=== PATIENT | female | born 1990 | race Caucasian/White ===

== ENCOUNTER 2021-11-27 19:35 | Emergency (ER) | payer MEDICAID ==
[~2021-11-27] VITALS: Ht 172.7 cm; Wt 140.9 kg
[2021-11-27 21:10] LABS: BASOPHILS # (AUTO) 0.1 X10'3 (0-0.2); BASOPHILS % (AUTO) 0.5 % (0-1); EOSINOPHILS # (AUTO) 0.1 X10'3 (0-0.9); EOSINOPHILS % (AUTO) 0.7 % (0-6); HEMATOCRIT 43.7 % (35.0-45.0); HEMOGLOBIN 14.6 g/dl (12.0-16.0); LYMPHOCYTES # (AUTO) 2.1 X10'3 (1.1-4.8); LYMPHOCYTES % (AUTO) 17.4 % (21-51); MEAN CORPUSCULAR HEMOGLOBIN 30.1 PG (27.0-31.0); MEAN CORPUSCULAR HGB CONC 33.4 g/dL (33.0-36.5); MEAN CORPUSCULAR VOLUME 90.2 FL (78-98); MEAN PLATELET VOLUME 7.9 FL (7.4-10.4); MONOCYTES % (AUTO) 8.1 % (2-12); NEUTROPHILS # (AUTO) 8.9 X10'3 (1.8-7.7); NEUTROPHILS % (AUTO) 73.3 % (42-75); PLATELET COUNT 337 X10'3 (140-440); RED BLOOD COUNT 4.85 X10'6 (4.20-5.60); RED CELL DISTRIBUTION WIDTH 15.3 % (11.5-14.5); WHITE BLOOD COUNT 12.1 X10'3 (4.5-11.0)
[2021-11-27 21:25] LABS: ALANINE AMINOTRANSFERASE 22 U/L (12-78); ALBUMIN 3.7 G/DL (3.4-5.0); ALBUMIN/GLOBULIN RATIO 0.9 (1.1-1.5); ALKALINE PHOSPHATASE 67 IU/L (46-116); ANION GAP 8 (8-16); ASPARTATE AMINO TRANSFERASE 16 U/L (10-37); BILIRUBIN,TOTAL 0.4 MG/DL (0.1-1.0); BLOOD UREA NITROGEN 11 MG/DL (7-18); BUN/CREATININE RATIO 12.5 (6.6-38.0); CALCIUM 8.6 MG/DL (8.5-10.1); CHLORIDE 110 MMOL/L (99-107); CREATININE 0.88 MG/DL (0.40-0.90); GLUCOSE 86 MG/DL (70-104); POTASSIUM 3.7 MMOL/L (3.5-5.1); SODIUM 143 MMOL/L (135-145); TOTAL PROTEIN 7.8 G/DL (6.4-8.2); eGFR 74 ML/MIN
[2021-11-28 02:25] LABS: CLARITY,URINE SLIGHTLY CLOUDY (Clear); COLOR,URINE YELLOW (Yellow); GLUCOSE, URINE NEGATIVE (Neg); KETONES,URINE 15 mg/dl (Neg); LEUKOCYTE ESTERASE ,URINE NEGATIVE (Neg); NITRITES, URINE NEGATIVE (Neg); OCCULT BLOOD,URINE SMALL (Neg); PH,URINE 5.5 (4.8-8.0); PROTEIN,URINE TRACE mg/dl (Neg); UROBILINOGEN,URINE 0.2 E.U/dL (0.2-1.0)
[2021-11-28 02:26] LABS: UA COLLECTION TYPE CLN CATCH MIDSTREAM
[2021-11-28 02:32] LABS: BACTERIA,URINE 3+ /HPF (Neg); MUCUS STRANDS MANY /LPF (Neg); SQUAMOUS EPITHELIAL CELL,UR MANY /LPF (FEW); WBC,URINE 0-4 /HPF (0-4)
[2021-11-28 02:33] LABS: URINE AMPHETAMINE SCREEN NEGATIVE (Neg); URINE BARBITUATE SCREEN NEGATIVE (Neg); URINE BENZODIAZEPINES SCREEN NEGATIVE (Neg); URINE CANNABINOID SCREEN POSITIVE (Neg); URINE COCAINE SCREEN NEGATIVE (Neg); URINE METHADONE SCREEN NEGATIVE (Neg); URINE OPIATE SCREEN NEGATIVE (Neg); URINE PHENCYCLIDINE SCREEN NEGATIVE (Neg)
--- NOTE | 2021-11-28 05:46 | NUR ---
Patient resting in room, in a safe environment
[2021-11-28 06:10] LABS: ETHANOL < 0.010 GM/DL (0.0-0.010)
[2021-11-28 06:11] LABS: ACETAMINOPHEN < 2.0 UG/ML (10-30)
[2021-11-28 06:17] LABS: URINE HCG NEGATIVE (NEG)
--- NOTE | 2021-11-28 06:30 | NUR ---
ASSUMED CARE AT THIS TIME, PT IS ASLEEP. IN NO FORM OF DISTRESS
--- NOTE | 2021-11-28 10:25 | NUR ---
PATIENT WAS MOVED TO THE OVERFLOW BEHAVIORAL SECTION OF THE ER IN RM 26. PT WAS IN NO FORM OF DISTRESS. AWAKE, ALERT AND ORIENTEDX4. CONTINUED TO DENY ANY THOUGHT OF HARM TO SELF OR OTHERS. HALLUCINATIONS CONTINUE TO BE PRESENT
--- NOTE | 2021-11-28 11:27 | NUR ---
Pt is currently in bed resting with eyes closed. Respirations are even and unlabored. No signs or symptoms of distress noted. Will continue to monitor.
--- NOTE | 2021-11-28 12:11 | NUR ---
Pt visiting with sister at bedside.
--- NOTE | 2021-11-28 13:11 | NUR ---
Pt resting in bed with eyes closed. No signs or symptoms of distress noted. Respirations appear even and unlabored. Will continue to monitor.
--- NOTE | 2021-11-28 14:05 | NUR ---
Pt is currently in bed resting with eyes open. Pt reports having auditory hallucinations telling her that "it's not worth it" and to "just leave". Pt reports having visual hallucinations approximately 1 hour ago of significant other. Will continue to monitor.
--- NOTE | 2021-11-28 16:09 | NUR ---
Pt is currently in bed resting with eyes closed. Respirations appear even and unlabored. No signs or symptoms of distress noted at this time. Will continue to monitor.
[2021-11-28] MEDS ORDERED: LORazepam 1 MG tablet PO ONE (16:15)
[2021-11-28] MEDS ORDERED: FURO-150 PO (16:51)
[2021-11-28] MEDS ORDERED: METF-436 PO (16:51)
[2021-11-28] MEDS ORDERED: ACET250T3 PO (16:51)
[2021-11-28] MEDS ORDERED: CYCL-394 PO (16:51)
[2021-11-28] MEDS ORDERED: TOPI25TA15 PO (16:51)
[2021-11-28] MEDS ORDERED: [UNRECOGNIZED DRUG - CODE] PO (16:51)
--- NOTE | 2021-11-28 17:02 | NUR ---
sister nelda's number [phone] sister Daren [phone]
[2021-11-28] MEDS: nicotine 21mg patch - 24 hr TD SCH (18:10)
--- NOTE | 2021-11-28 18:41 | NUR ---
Pt is in bed resting with eyes closed. No signs or symptoms of distress noted. Respirations appear even and unlabored. Will continue to monitor.
--- NOTE | 2021-11-28 18:56 | NUR ---
[facility] regarding patient's medication Acetazalomide; pharmacy only carries the 500mg capsules but patient is on 250mg dose and so patient can provide own meds to be administered by staff.
--- NOTE | 2021-11-28 19:50 | NUR ---
Pt is in bed resting with eyes closed. No signs or symptoms of distress noted. Respirations appear even and unlabored. Will continue to monitor.
[2021-11-28] MEDS ORDERED: acetaZOLAMIDE 250mg tablet PO SCH (20:00)
--- NOTE | 2021-11-28 20:41 | NUR ---
Pt is in bed resting with eyes closed. Respirations appear even and unlabored. No signs or symptoms of distress noted. Will continue to monitor.
--- NOTE | 2021-11-28 22:22 | NUR ---
Patient resting in bed, quietly, in line of sight of staff. Expresses no need at this time.
--- NOTE | 2021-11-28 23:18 | NUR ---
Patient resting in bed with eyes in line of sight of staff.
--- NOTE | 2021-11-29 | NUR ---
Patient resting in bed in lines of sight of staff
[2021-11-29] MEDS: cyclobenzaprine 10mg tablet PO SCH ×3 (00:40→16:00)
[2021-11-29] MEDS: nicotine 21mg patch - 24 hr TD SCH ×2 (00:40→08:00)
--- NOTE | 2021-11-29 00:57 | NUR ---
Nicotine patch replaced. Scheduled medication administered as ordered. Patient remains cooperative in a safe environment.
--- NOTE | 2021-11-29 02:21 | NUR ---
Patient resting quietly in bed in lines of sight of all staff.
--- NOTE | 2021-11-29 03:28 | NUR ---
Pt resting in bed , given extra warm blanket for comfort
--- NOTE | 2021-11-29 04:45 | NUR ---
Patient resting in bed quietly in line of sight of staff
--- NOTE | 2021-11-29 05:44 | NUR ---
Patient resting quietly in bed in line of sight of staff
[2021-11-29 06:09] VITALS: BP 117/69
[2021-11-29] MEDS ORDERED: metFORMIN 500mg tablet PO SCH (07:30)
[2021-11-29] MEDS ORDERED: acetaZOLAMIDE 500mg capsule.SA PO ONE (07:50)
[2021-11-29] MEDS ORDERED: topiramate 25mg tablet PO SCH (08:00)
[2021-11-29] MEDS ORDERED: LEVONORGESTREL ETHIN ESTRADIOL PO SCH (08:00)
[2021-11-29] MEDS ORDERED: acetaZOLAMIDE 500mg capsule.SA PO SCH (08:00)
[2021-11-29] MEDS ORDERED: furosemide 20MG tablet PO SCH (08:00)
--- NOTE | 2021-11-29 09:08 | NUR ---
Pt wants to watch TV. She is tearful.
--- NOTE | 2021-11-29 12:30 | NUR ---
Pt ate 90% of lunch.
--- NOTE | 2021-11-29 14:05 | NUR ---
Sp[facility] with M[facility] from [facility]. Given report.
--- NOTE | 2021-11-29 14:25 | NUR ---
Received call from Meaghan at [facility]. Pt has been accepted to [facility] in [place]. The accepting physcian is Dr. Akins and acceptance time is 1415. Transport eta is 1999, pending student truck driver.
--- NOTE | 2021-11-29 16:25 | NUR ---
Pt refused her Flexaril. Stated that she never takes Flexaril in the afternoon.
[2021-11-29] MEDS ORDERED: LORazepam 1 MG tablet PO ONE (18:35)
--- NOTE | 2021-11-29 18:52 | NUR ---
The patient approached the nursing station and was shaking and crying and stated that her anxiety was very high and she was asking for medication "to take the edge off" Dr. Hall made aware and orders received. She stated that she is having auditory derogatory voices. She is very depressed and has not been eating for over one month. She is motivated for treatment. She was made aware that she is being transferred to [facility].
== END 2021-11-29 19:47 ==
LOC: ER 19:36
DX: R45.851 Suicidal ideations (principal); Z20.822 Contact with and (suspected) exposure to COVID-19; R45.850 Homicidal ideations; F29 Unspecified psychosis not due to a substance or known physiological condition; F17.200 Nicotine dependence, unspecified, uncomplicated; Z88.2 Allergy status to sulfonamides; Z91.041 Radiographic dye allergy status
CPT/HCPCS: 36415; 80053; 80305; 80320; 80329; 81001; 81025; 82948; 84443; 85025; 87635; 99285; C9803